=== PATIENT | female | born 1940 | race Caucasian/White ===

== ENCOUNTER 2016-08-22 20:58 | Emergency (ER) | payer MEDICAID, OTHER ==
[~2016-08-22] VITALS: Ht 152.4 cm; Wt 49.9 kg
[2016-08-22 22:12] LABS: Basophils # (auto) 0 uL; Eosinophils # (auto) 0 uL; Eosinophils % (auto) 0.1 % (0.0-7.0); Hematocrit 36.9 % (36.0-46.0); Hemoglobin 12.8 g/dL (12.2-16.2); Lymphocytes # (auto) 0.7 uL; Lymphocytes % (auto) 6.7 % (10.0-50.0); Mean Corpuscular Hemoglobin 29.8 pg (28.0-32.0); Mean Corpuscular Hgb Conc. 34.7 g/dL (32.0-36.0); Mean Corpuscular Volume 85.9 fL (80.0-100.0); Mean Platelet Volume 8.1 fL (7.4-10.4); Monocytes # (auto) 0.6 uL; Monocytes % (auto) 6.2 % (0.0-12.0); Neutrophils # (auto) 8.9 uL; Platelet Count (auto) 262 10^3/uL (140-450); Red Cell Distribution Width 14.9 % (11.6-16.0); White Blood Cell 10.2 10^3/uL (4.4-10.8)
[2016-08-22 22:28] LABS: Albumin 4.1 g/dL (3.4-5.0); BUN/Creatinine Ratio 56.4; Calcium 8.8 mg/dL (8.5-10.1); Potassium 3.6 mmol/L (3.5-5.1)
[2016-08-22 22:30] LABS: Bilirubin, Total 2.2 mg/dL (0.2-1.0); Total Protein 7.3 g/dL (6.4-8.2)
[2016-08-23] MEDS ORDERED: HYDROmorphone HCL 2 MG/ML VL IV ONE
[2016-08-23] MEDS ORDERED: ONDANSETRON HCL 4 MG/2 ML VIAL IV ONE
[2016-08-23 00:23] LABS: Amylase 35 U/L (25-115); Magnesium 2.3 mg/dL (1.6-2.6)
[2016-08-23 00:43] LABS: INR 1.02 (0.9-1.15); Partial Thromboplastin Time 28.9 sec (22.64-33.71)
[2016-08-23] MEDS ORDERED: PIPERACILLIN-TAZOB 3.375GM 100 ML IV ONE (02:00)
[2016-08-23] MEDS ORDERED: metroNIDAZOLE 500MG/100ML 100 ML IV ONE (02:00)
[2016-08-23] MEDS ORDERED: ONDANSETRON ODT 4 MG TAB PO PRN (06:45)
[2016-08-23] MEDS ORDERED: NITROGLYCERIN 0.4 MG SL TAB SL PRN (06:45)
[2016-08-23] MEDS ORDERED: SODIUM CHLORIDE 0.9% 1,000 ML IV ONE (06:45)
[2016-08-23] MEDS ORDERED: MORPHINE SULF INJ 2 MG/ML SYRINGE 1ML IV PRN ×2 (06:45)
[2016-08-23] MEDS ORDERED: PIPERACILLIN-TAZOB 3.375GM 100 ML IV SCH (12:00)
[2016-08-23 14:19] VITALS: BP 100/45
== END 2016-08-23 16:24 | disposition home or self-care (01) ==
LOC: EDBD 20:58 → ER 21:02
DX: K81.0 Acute cholecystitis (principal); M81.0 Age-related osteoporosis without current pathological fracture; Z88.6 Allergy status to analgesic agent
CPT/HCPCS: 36415; 74176; 76705; 78226; 80053; 82150; 83690; 83735; 84484; 85025; 85610; 85730; 93005; 94761; 96365; 96366; 96367; 96375; 99285; A9537; J1170; J2405; J2543; J3490; J7030

== ENCOUNTER 2017-05-29 12:36 | Observation (INO) | payer OTHER ==
[~2017-05-29] VITALS: Ht 142.2 cm; Wt 38.1 kg
[2017-05-29] MEDS ORDERED: SODIUM CHLORIDE 0.9% 500 ML IVB ONE (15:08)
[2017-05-29 15:13] LABS: Basophils # (auto) 0 uL; Basophils % (auto) 0.2 % (0.0-2.0); Eosinophils # (auto) 0 uL; Eosinophils % (auto) 0.1 % (0.0-7.0); Hematocrit 32.5 % (36.0-46.0); Hemoglobin 11.2 g/dL (12.2-16.2); Lymphocytes # (auto) 0.2 uL; Mean Corpuscular Hemoglobin 31.2 pg (28.0-32.0); Mean Corpuscular Hgb Conc. 34.6 g/dL (32.0-36.0); Mean Corpuscular Volume 90.1 fL (80.0-100.0); Monocytes # (auto) 0.5 uL; Monocytes % (auto) 7.3 % (0.0-12.0); Neutrophils # (auto) 6.7 uL; Neutrophils % (auto) 89.4 % (37.0-80.0); Nucleated Red Blood Cells % 0.2 %; Platelet Count (auto) 288 10^3/uL (140-450); Red Cell Distribution Width 15.5 % (11.8-14.3); White Blood Cell 7.5 10^3/uL (4.4-10.8)
[2017-05-29 15:40] LABS: INR 1.14 (0.9-1.15); Partial Thromboplastin Time 32.3 sec (22.64-33.71); Prothrombin Time 12.4 sec (9.37-12.3)
[2017-05-29 15:53] LABS: Magnesium 2.1 mg/dL (1.6-2.6)
[2017-05-29 15:59] LABS: Potassium 3.5 mmol/L (3.5-5.1)
[2017-05-29 16:00] LABS: BUN/Creatinine Ratio 48.1; Bilirubin, Total 1.7 mg/dL (0.2-1.0); Calcium 8.8 mg/dL (8.5-10.1); Total Protein 7.3 g/dL (6.4-8.2)
[2017-05-29 16:01] LABS: Albumin 3.6 g/dL (3.4-5.0)
[2017-05-29] MEDS ORDERED: cefTRIAXone 1GM/10ml IVPUSH 10 ML IV ONE (16:30)
[2017-05-29] MEDS ORDERED: ACE325T PO (19:36)
[2017-05-29 19:58] VITALS: BP 116/60
[2017-05-29 20:54] LABS: Urine Bacteria FEW /hpf (None Seen); Urine Blood TRACE /uL (Negative); Urine Mucus FEW (None Seen); Urine Specific Gravity 1.023 (1.001-1.035); Urine WBC 3 /hpf (0 - 5)
== END 2017-05-29 21:51 | disposition home or self-care (01) | DRG 392 ==
LOC: EDBD 12:36 → ER 12:36 → OVERFLOW 15:10 → ER 21:51
PROVIDERS: ADMIT Family Medicine; ATTEND Family Medicine
DX: R10.9 Unspecified abdominal pain (principal); E11.9 Type 2 diabetes mellitus without complications; K74.60 Unspecified cirrhosis of liver; M48.55XA Collapsed vertebra, not elsewhere classified, thoracolumbar region, initial encounter for fracture; F32.9 Major depressive disorder, single episode, unspecified; F41.9 Anxiety disorder, unspecified; G89.29 Other chronic pain; M81.0 Age-related osteoporosis without current pathological fracture; R62.7 Adult failure to thrive
CPT/HCPCS: 36415; 71046; 74176; 80053; 81001; 82150; 83605; 83690; 83735; 85025; 85610; 85730; 87040; 96361; 96374; 99285; G0378; 93005